=== PATIENT | male | born 1945 | race Caucasian/White ===

== ENCOUNTER → 2017-05-23 | Outpatient (CLI) | payer OTHER | END | disposition home or self-care (01) | LOC: CVU 09:21 | PROVIDERS: ATTEND Surgery | DX: I77.811 Abdominal aortic ectasia (principal); I70.203 Unspecified atherosclerosis of native arteries of extremities, bilateral legs; I70.0 Atherosclerosis of aorta; I10 Essential (primary) hypertension; Z95.0 Presence of cardiac pacemaker; Z95.828 Presence of other vascular implants and grafts | CPT/HCPCS: 93978 ==

== ENCOUNTER → 2018-10-01 | Outpatient (CLI) | payer OTHER | END | disposition home or self-care (01) | LOC: RAD 09:25 | PROVIDERS: ATTEND Surgery | DX: I71.02 Dissection of abdominal aorta (principal) | CPT/HCPCS: 72190; 74021 ==